=== PATIENT | male | born 1990 | race Two or more races ===

== ENCOUNTER 2025-03-07 17:48 | Emergency (ER) | payer OTHER ==
[~2025-03-07] VITALS: Ht 170.2 cm; Wt 81.6 kg
[2025-03-07 18:21] LABS: PLATELET COUNT (AUTO) 206 K/uL (150-450); RED BLOOD CELL COUNT(AUTO) 4.69 MIL/uL (4.5-6.0); RED CELL DISTRIBUTION WIDTH 14.0 % (11.5-15.0); WHITE BLOOD COUNT (AUTO) 7.5 K/uL (4.3-11.0)
[2025-03-07 18:27] LABS: CALCIUM, SERUM 8.3 mg/dL (8.5-10.1); CREATININE 0.9 mg/dL (0.6-1.3); SODIUM SERUM 136.0 mmol/L (136-145); UREA NITROGEN, BLOOD 17.0 mg/dL (7-18)
[2025-03-07] MEDS: IV NS 0.9% 1,000 ML BAG IV ONE (18:30)
[2025-03-07 18:33] LABS: ASPARTATE AMINOTRANSFERASE 18.0 U/L (15-37); TOTAL PROTEIN, SERUM 7.4 g/dL (6.4-8.2)
[2025-03-07] MEDS ORDERED: CT SWABBABLE VALVE TRANS SET 1 EA INFUS.SET MC ONE (18:48)
[2025-03-07] MEDS ORDERED: IOHEXOL-300 100 ML VIAL IV ONE (18:48)
[2025-03-07] MEDS ORDERED: IV NS 0.9% 250 ML IV ONE (18:48)
[2025-03-07] MEDS ORDERED: ONDANSETRON HCL/PF 4 MG/2 ML VIAL ONE (19:13)
[2025-03-07] MEDS ORDERED: KETOROLAC TROMETHAMINE 15 MG/ML VIAL ONE (19:13)
[2025-03-07] MEDS: ONDANSETRON HCL/PF 4 MG/2 ML VIAL IVP ONE (19:29)
[2025-03-07] MEDS: KETOROLAC TROMETHAMINE 15 MG/ML VIAL IV ONE (19:29)
[2025-03-07] MEDS ORDERED: ONDA4TAB11 PO (19:53)
[2025-03-07] MEDS ORDERED: LOPE2CAP40 PO (19:53)
[2025-03-07] MEDS ORDERED: KETO10TA2 PO (19:53)
[2025-03-07 20:11] LABS: APPEARANCE,URINE CLEAR (CLEAR); BLOOD, URINE 1+ Ery/uL (NEGATIVE); LEUKOCYTE ESTERASE ,URINE NEGATIVE (NEGATIVE); NITRITE, URINE NEGATIVE (NEGATIVE); UGLUCOSE NEGATIVE (NEGATIVE)
[2025-03-07 20:17] LABS: ADD URINE CULTURE NO
[2025-03-07 20:18] LABS: SQUAMOUS EPITHELIAL CELL,UR Rare /HPF (None Seen)
[2025-03-07 20:30] VITALS: BP 118/78; TEMP 97.9; O2SAT 97
== END 2025-03-07 20:31 | disposition home or self-care (01) ==
LOC: ER 17:48
DX: K52.9 Noninfective gastroenteritis and colitis, unspecified (principal); R11.0 Nausea
CPT/HCPCS: 99285; 74177; 96374; 76705; 96361; 96375; 85025; 80048; 83690; 80076; 81001; 36415; J1885; J2405; J7030; J7050; Q9967